=== PATIENT | male | born 1985 | race Caucasian/White ===

== ENCOUNTER 2020-08-16 23:55 | Emergency (ER) | payer OTHER ==
[~2020-08-16] VITALS: Ht 170.2 cm; Wt 68.0 kg
[2020-08-17] VITALS: BP 138/79
--- NOTE | 2020-08-17 00:02 | NUR ---
DR. GRAY AT BEDSIDE FOR MEDICAL SCREENING EXAM
[2020-08-17] MEDS ORDERED: SULF1TAB48 PO (00:10)
== END 2020-08-17 00:12 | disposition home or self-care (01) ==
LOC: ER 08-17
DX: F15.10 Other stimulant abuse, uncomplicated (principal); L03.114 Cellulitis of left upper limb; L03.113 Cellulitis of right upper limb; F42.4 Excoriation (skin-picking) disorder; F17.200 Nicotine dependence, unspecified, uncomplicated

== ENCOUNTER 2020-09-08 01:52 | Emergency (ER) | payer MEDICAID, OTHER ==
[~2020-09-08] VITALS: Ht 170.2 cm; Wt 61.2 kg
[~2020-09-08 01:52] MED LIST: SULF1TAB48 PO
[2020-09-08 02:11] VITALS: BP 135/87
[2020-09-08] MEDS ORDERED: SULF1TAB48 PO (02:27)
[2020-09-08] MEDS ORDERED: GABA600T12 PO (02:27)
[2020-09-08] MEDS ORDERED: GABAPENTIN 100 MG CAPSULE PO ONE (02:30)
[2020-09-08] MEDS ORDERED: SULFAMETH/TRIMETH 800/160 MG 1 UDTAB TABLET PO ONE (02:30)
[2020-09-08] MEDS ORDERED: GABAPENTIN 300 MG CAPSULE ONE (02:33)
[2020-09-08] MEDS ORDERED: SULFAMETH/TRIMETH 800/160 MG 1 UDTAB TABLET ONE (02:34)
--- NOTE | 2020-09-08 02:40 | NUR ---
Patient medically cleared for dc. Written and verbal after care instructions given. Patient verbalizes understanding of instruction. Pt ambulatory w/ steady gait
== END 2020-09-08 02:41 | disposition home or self-care (01) ==
LOC: ER 01:54
DX: F22 Delusional disorders (principal); L98.9 Disorder of the skin and subcutaneous tissue, unspecified; G89.29 Other chronic pain; F17.210 Nicotine dependence, cigarettes, uncomplicated; Z79.899 Other long term (current) drug therapy

== ENCOUNTER 2020-11-09 11:17 | Emergency (ER) | payer MEDICAID ==
[~2020-11-09] VITALS: Ht 175.3 cm; Wt 68.0 kg
[~2020-11-09 11:17] MED LIST changes: +GABA600T12 PO
--- NOTE | 2020-11-09 11:21 | NUR ---
The patient bibs for medication refill -- gabapentin 600mg TID. The patient is alert and oriented x4.
--- NOTE | 2020-11-09 11:22 | NUR ---
Dr Solorio at the bedside.
[2020-11-09] MEDS ORDERED: GABA600T12 PO (11:34)
[2020-11-09 11:38] VITALS: BP 125/88
== END 2020-11-09 11:39 | disposition home or self-care (01) ==
LOC: ER 11:21
DX: F19.20 Other psychoactive substance dependence, uncomplicated (principal); Z76.0 Encounter for issue of repeat prescription; G89.29 Other chronic pain; F17.200 Nicotine dependence, unspecified, uncomplicated; Z79.899 Other long term (current) drug therapy

== ENCOUNTER 2021-03-14 13:59 | Emergency (ER) | payer OTHER ==
[~2021-03-14] VITALS: Ht 170.2 cm; Wt 70.3 kg
[2021-03-14 14:22] VITALS: BP 135/86
[2021-03-14] MEDS ORDERED: GABA600T12 PO (15:22)
--- NOTE | 2021-03-14 15:26 | NUR ---
Patient discharged to home in stable condition. Written and verbal after care instructions given. Patient verbalizes understanding of instruction.
== END 2021-03-14 15:27 | disposition home or self-care (01) ==
LOC: ER 14:04
DX: G89.29 Other chronic pain (principal); M25.562 Pain in left knee; Z76.0 Encounter for issue of repeat prescription; Z79.899 Other long term (current) drug therapy

== ENCOUNTER 2021-06-15 14:32 | Emergency (ER) | payer OTHER ==
[~2021-06-15] VITALS: Ht 170.2 cm; Wt 70.3 kg
[2021-06-15 14:47] VITALS: BP 139/86
[2021-06-15] MEDS ORDERED: GABA600T12 PO (15:24)
== END 2021-06-15 15:30 | disposition home or self-care (01) ==
LOC: ER 15:27
DX: G89.29 Other chronic pain (principal); M25.562 Pain in left knee; Z76.0 Encounter for issue of repeat prescription; F17.200 Nicotine dependence, unspecified, uncomplicated; Z79.899 Other long term (current) drug therapy